=== PATIENT | female | born 1950 | race Caucasian/White ===

== ENCOUNTER → 2018-08-31 | Outpatient (CLI) | payer OTHER | END | disposition home or self-care (01) | LOC: RAH 08:39 | PROVIDERS: ATTEND Internal Medicine Critical Care Medicine | DX: K80.20 Calculus of gallbladder without cholecystitis without obstruction (principal); I65.22 Occlusion and stenosis of left carotid artery | CPT/HCPCS: 76705; 93880 ==

== ENCOUNTER 2018-11-02 07:05 | Day surgery (SDC) | payer OTHER ==
[2018-10-28 12:05] VITALS: BP 135/60
[2018-10-28 12:16] LABS: BASOPHILS % (AUTO) 0.8 % (0.0-5.0); EOSINOPHILS % (AUTO) 0.4 % (0.0-8.0); HEMATOCRIT 41.1 % (36-48); LYMPHOCYTES % (AUTO) 33.3 % (21.0-51.0); MEAN CORPUSCULAR HEMOGLOBIN 29.4 pg (27.0-33.0); MONOCYTES % (AUTO) 6.7 % (3.0-13.0); NEUTROPHILS % (AUTO) 58.8 % (40.0-77.0); NUCLEATED RED BLOOD CELLS 0.1 % (0.0-0.19); PLATELET COUNT (AUTO) 216 K/uL (130-400); RED BLOOD CELL COUNT(AUTO) 4.62 MIL/uL (4.00-5.50); RED CELL DISTRIBUTION WIDTH 14.2 % (11.0-15.5); WHITE BLOOD COUNT (AUTO) 6.7 K/uL (4.8-10.8)
[2018-10-28 12:17] LABS: APPEARANCE,URINE Clear (CLEAR); BILIRUBIN,URINE Negative (NEGATIVE); COLOR,URINE Yellow (YELLOW); GLUCOSE, URINE (UA) Negative (NEGATIVE); KETONES,URINE Negative (NEGATIVE); LEUKOCYTE ESTERASE ,URINE Negative (NEGATIVE); NITRATE,URINE Negative (NEGATIVE); OCCULT BLOOD,URINE Negative (NEGATIVE); PH,URINE 5.5 (5.0-8.0); PROTEIN,URINE Negative (NEGATIVE); UROBILINOGEN,URINE 0.2 mg/dL (0.2-1.0)
[2018-10-28 12:27] LABS: ALBUMIN 4.1 g/dL (3.5-5.0); BILIRUBIN,DIRECT 0.1 mg/dL (0.0-0.3); BILIRUBIN,TOTAL 0.4 mg/dL (0.2-1.0); CREATININE 0.7 mg/dL (0.5-1.5); POTASSIUM 3.9 mmol/L (3.5-5.1); TOTAL PROTEIN, SERUM 7.8 g/dL (6.0-8.3)
[2018-11-02] VITALS (18 sets, daily range): BP systolic 120–160; BP diastolic 42–63
[~2018-11-02] VITALS: Ht 167.6 cm; Wt 68.7 kg
[~2018-11-02 07:05] MED LIST: ATOR10TA69 PO; LACTATED RINGERS 1000ML 1,000 ML IV SCH; PROLIA IJ
[2018-11-02] MEDS ORDERED: HEPARIN SODIUM 1000UNIT/ML 10ML VIAL ONE (07:29)
--- NOTE | 2018-11-02 07:44 | NUR ---
PAIN pt denies pain pt states has had previous abd attacks May Addendum: 11/02/18 at 0752 by CHANTAL POWELL RN RN Amended: Links added.
[2018-11-02] MEDS ORDERED: PROPOFOL 10 MG/ML 20ML VIAL IV ONE (07:58)
[2018-11-02] MEDS ORDERED: LIDOCAINE PF 2% 5ML ABBOJECT ONE (07:58)
[2018-11-02] MEDS ORDERED: SUCCINYLCHOLINE 200MG/10ML SYR ONE (07:58)
[2018-11-02] MEDS ORDERED: ROCURONIUM 10MG/1ML SYR 10 MG/ML ML ONE (07:59)
[2018-11-02] MEDS ORDERED: FENTANYL CITRATE PF 50 MCG/1 ML 2ML VIAL ONE ×2 (07:59→09:32)
[2018-11-02] MEDS ORDERED: EPHEDRINE SULFATE 50 MG/ML AMPULE ONE (08:47)
[2018-11-02] MEDS ORDERED: KETOROLAC TROMETHAMINE 30MG/ML ONE (09:32)
[2018-11-02] MEDS ORDERED: ONDANSETRON HCL 4 MG/2 ML VIAL ONE (09:33)
[2018-11-02] MEDS ORDERED: NEOSTIGMINE 5MG/5ML SYR IV ONE (09:37)
[2018-11-02] MEDS ORDERED: GLYCOPYRROLATE 1 MG/5 ML SYRINGE ONE (09:37)
[2018-11-02] MEDS ORDERED: MEPERIDINE-PF 25 MG/ML SYG ONE ×2 (10:08→10:31)
--- NOTE | 2018-11-02 11:10 | NUR ---
RECEIVED AWAKE ,ALERT NO COMPLAINTS OF DISCOMFORT ,,BANDAIDES WITH NO BLEEDING ,ABD SOFT ,CALL ATKINSON IN REACH,,ENCOURAGED TO DEEP BREATH ,AND COUGH ,AND USE SUPPORT PILLOW,VERBALIZES UNDERSTANDING
--- NOTE | 2018-11-02 11:55 | NUR ---
STATES FEELS A LITTLE NAUSEA,ICE CHIPS GIVEN ,STATES FEELS BETTER
--- NOTE | 2018-11-02 12:10 | NUR ---
STATES FEELS BETTER ,ENCOURAGED TO WALK SLOW ,DEEP BREATH ,TO CAR VIA W/C
== END 2018-11-02 12:15 | disposition home or self-care (01) ==
LOC: DAH 07:05
PROVIDERS: ATTEND Surgery
DX: K80.10 Calculus of gallbladder with chronic cholecystitis without obstruction (principal); E78.5 Hyperlipidemia, unspecified; Z98.890 Other specified postprocedural states; Z79.899 Other long term (current) drug therapy; Z79.01 Long term (current) use of anticoagulants; K21.9 Gastro-esophageal reflux disease without esophagitis
CPT/HCPCS: 36415; 47562; 80048; 80076; 81003; 85025; 88304; A4450; A4930; C1713; C1769 ×4; J0330; J1644; J1885; J2001; J2175 ×2; J2405; J2704; J2710; J3010 ×2; J3490 ×2; J7030; J7120 ×2

== ENCOUNTER → 2023-01-27 | Outpatient (CLI) | payer MEDICARE ==
[~2023-01-27] MED LIST changes: -LACTATED RINGERS 1000ML 1,000 ML IV SCH
== END | disposition home or self-care (01) ==
LOC: RAH 11:27
PROVIDERS: ATTEND Internal Medicine Critical Care Medicine
DX: R09.89 Other specified symptoms and signs involving the circulatory and respiratory systems (principal)
CPT/HCPCS: 93880